=== PATIENT | female | born 1960 | race Caucasian/White ===

== ENCOUNTER 2019-04-14 12:06 | Outpatient (CLI) | payer BC ==
--- NOTE | 2019-04-14 12:27 | RAD ---
EXAM: CHEST TWO VIEWS 04/14/2019 12:24 PM HISTORY: Weight loss and hiatal hernia COMPARISON: None. FINDINGS: Lungs: No acute airspace consolidation. Heart: Normal in size and contour. Pulmonary Vessels: Normal. Costophrenic Angles: Clear. Pneumothorax: None. Osseous Structures: Intact. Additional Findings: Cholecystectomy IMPRESSION: No significant acute intrathoracic disease.
== END 2019-04-14 12:07 | disposition home or self-care (01) ==
LOC: BICRAD 12:06
PROVIDERS: ATTEND Internal Medicine Gastroenterology
DX: R63.4 Abnormal weight loss (principal); R13.19 Other dysphagia; K44.9 Diaphragmatic hernia without obstruction or gangrene
CPT/HCPCS: 71046